=== PATIENT | male | born 1965 | race Caucasian/White ===

== ENCOUNTER 2019-07-19 09:52 | Outpatient (RCR) | payer OTHER, SELFPAY ==
--- NOTE | 2019-07-20 11:39 | HP.FCE ---
HP OT Functional Capacity Eval - Task Lift Floor (Occasional 1-33% of Day): 75# Floor (Frequent 34-66% of Day): 38# Floor (Constant 67-100% of Day): 15# Floor PDL: Medium-Heavy Knee (Occasional 1-33% of Day): 75# Knee (Frequent 34-66% of Day): 38# Knee (Constant 67-100% of Day): 15# Knee PDL: Medium-Heavy Waist (Occasional 1-33% of Day): 85# Waist (Frequent 34-66% of Day): 42# Waist (Constant 67-100% of Day): 17# Waist PDL: Medium-Heavy Shoulder (Occasional 1-33% of Day): 45# Shoulder (Frequent 34-66% of Day): 22 Shoulder (Constant 67-100% of Day): 9 Overhead (Occasional 1-33% of Day): 15# Overhead (Frequent 34-66% of Day): 7.5 Overhead (Constant 67-100% of Day): NA Overhead PDL: Sedentary-Light Comments: Pain limiting factor with pt- due to pts pain level no constant ability with lifting - Work Activity/Posture Bending: Occasional Ability (1-33% of day) Squatting: Occasional Ability (1-33% of day) Kneeling: Frequent Ability (34-66% of day) Reaching out: Frequent Ability (34-66% of day) Reaching up: Frequent Ability (34-66% of day) Sitting: Occasional Ability (1-33% of day) Comments: with shiffting body weight Walking: Occasional Ability (1-33% of day) Standing: Occasional Ability (1-33% of day) Comments: with shifting body weight - Reference Duration Sedentary Sedentary Light Light Light Medium Medium Medium Heavy Very Heavy Heavy Occasional (0-33% of day) Frequent (34-66% of day) Constant (67-100% of day) 10 # Negligible Negligible 15 # 8 # Negligible 20 # 10# Negli. 35 # 18 # 7 # 50 # 25 # 10 # 75 # 100 # >100 # 38 # 50 # >50 # 15 # 20 # >20 # - Patient Information Height: 1.85 m Weight:: 104.326 kg Hand Dominance: Right - Medical History Medical History Including Restrictions: pt states he was in good health until he started having back issues for greater than 6 years. Pt has been through Physical therapies and other conservative methods. Pt states all conservative methods failed, and his low back right side pain got worse and he opted to have sx (laminectomy L4-L5) April 09, 2019. in anticipation of feeling better. Pt states he did have physical therapy following his sx and has continued with his HEP that they gave him. Pt states his spine surgeon released pt to go back to work but pain mtg referred pt for FCE to determine pts restriction. pt reports he is icing his back every other day. Pt states now he is limiting himself with twisting/turning and lifting because he does not want to hurt his back .pt states if he is more active his symptoms increase - Diagnoses Diagnoses: Laminectomy L4-L5 sx on 04/09/19 - Symptoms Symptoms: Pain from low back, buttock, groin to heal. right leg weakness. or lack of leg coordination - Pain Pain: Pt reports sitting he is currently 6.5/10 thats with taking pain medication at 9:30 am. Pt states pain travels from back to right groin, buttock. Brendan Pain scale= 37. 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 pt states he has worked there 6 years pt states his job requirements of lift 35#, any lifting greater than 35# work policy requires employee to get help. Pt states he also is required to climb ladders two to three stories high, crawling, squatting, kneeling and walking or riding a tricycle. Pt states prior to working at 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 pt left this employment due to company closing. - Behavioral Behavioral: pt was cooperative and put good effort to requested tasks. - ADLS ADLS: Pt lives with his in a split-level home- pt has 15 steps to get to main floor of home - steps have two railings. Pt has walk in shower and states he can field marketing team leader shower for his bathing tasks at independent level. Pt reports he is independent with dressing. Pt is independent with yard care, driving and shopping for short periods of time. Pt states he is performing his HEP physical therapy has given him and walking 30 min a day. - Physical Examination Physical Examination: Well nourished male with glasses ROM: pt demo ROM WFL Strength: MMT right hip flex 3+/5. MMT right quad 3+/5 Pt demo with weak right LE strength. left LE grossly 5/5. BUE MMT 5/5 grossly throughout. Right Senior Firewall Engineer Strength Average: 124.33 Right Senior Firewall Engineer Strength Percentile: 59% Left Senior Firewall Engineer Strength Average: 118.33 Left Senior Firewall Engineer Strength Percentile: 70% Right Lateral Pinch Average: 30.00 Right Lateral Pinch Percentile: >90% Left Lateral Pinch Average: 30.66 Left Lateral Pinch Percentile: >90% Right Tripod Pinch Average: 21.33 Right Tripod Pinch Percentile: 75% Left Tripod Pinch Average: 32.00 Left Tripod Pinch Percentile: >90% Sensation: denies Fine Motor: denies issues. 9 hole-peg test. right 18.73 = 75%. left 17.35 sec.= 90%. no deficits noted with fine motor skils Balance: pt demo a loss of balance while performing bending forward. Pt able to correct himself independently. no other loss of balance was noted. - Non Material Handling Activities Bending: PT demo the ability to bend forward states with bending correction (45* flexion) pain in back up increases to 7/10. pt state it feels like something is rolling over his nerve or pinching it. Pt demo the ability to bend forward reaching the floor three times, ten times and ten times rapidly pt had loss of balance with correction at number 6 but completed 10 times. pt report pain 5/10 following. Pt can bend forward on an occasional ability. Squatting: Pt demo the ability to squat three times and ten time with external support- states pain in groin on right side 7/10 .pt unable to complete 10 times rapidly. pt can perform squatting on a occasional ability Kneeling: pt demo the abilty to kneel left leg out and right leg back- reported groin, quad and buttock pain 7/10- pt attempted with right leg out and left leg behind- needed ext support- pt kneel ten times only unable to complete ten times rapidly. pt reported pain 7/10. Reaching out/up: Pt demo the ability to reach up/out three times, ten times and ten times rapidly. pt completed standing. no increase in back pain 4/10. Pt can reach out/up on a frequent ability. Walking: Pt demo the ability to ambulate 15 min with no expressed increase in pain- pt is walking 30 min a day for part of his recocvery. Pt can ambulate on a occasional ability Standing: pt demo the ability to stand 6 min shifting body weight. pt can stand on occasional ability Sitting: Pt demo the ability to sit for 30 min and then started shifting his body weight to increase comfort pt reports pain 5/10. Pt can sit on a frequent ability. Climbing Stairs: pt demo the ability to ascend/descend ten steps with a reciprocal step patter with use of hand rails. - Dynamic Occasional Lifting Capacity Floor Lift: Pt lifted 75# maximally and 45# comfortably from floor level. Knee Lift: Pt lifted 75# maximally and 45# comfortably from knee level. Waist Lift: Pt lifted 85# maximally and 45# comfortably from waist level. Shoulder Lift: Pt lifted 45# maximally and 24# comfortably from shoulder level. Overhead Lift: Pt lifted 15# maximally from overhead level. Carrying: pt carried 35 comfortably for 35 feet. Comments: pt reports he was performing tasks this visit that he has not done in a while- pain at end of session was 8/10. pain is limiting factor with tasks.
== END 2019-07-19 19:00 | disposition home or self-care (01) ==
LOC: OT 09:52
PROVIDERS: Family Provider Family Medicine; PCP Family Medicine; Referring Provider Anesthesiology Pain Medicine; Visit Provider Anesthesiology Pain Medicine
DX: M54.9 Dorsalgia, unspecified (principal)
CPT/HCPCS: 97750

== ENCOUNTER → 2019-09-20 13:53 | Outpatient (CLI) | payer OTHER, SELFPAY ==
[2019-09-20 14:44] LABS: Amphetamine Urine VISTA NEGATIVE (<1000 ng/mL); Barbiturate Urine VISTA NEGATIVE (< 200 ng/mL); Benzodiazepine Urine VISTA NEGATIVE (< 200 ng/mL); Cocaine Urine VISTA NEGATIVE (< 300 ng/mL); Ecstacy Urine VISTA NEGATIVE (< 500 ng/mL); Methadone Urine VISTA NEGATIVE (< 300 ng/mL); PCP Urine VISTA NEGATIVE (< 25 ng/mL); THC Urine VISTA NEGATIVE (< 50 ng/mL); Vista UDS pH Range 5
== END ==
PROVIDERS: Family Provider Family Medicine; PCP Family Medicine; Referring Provider Anesthesiology Pain Medicine; Visit Provider Anesthesiology Pain Medicine
DX: F11.20 Opioid dependence, uncomplicated (principal)
CPT/HCPCS: 36415; 80307

== ENCOUNTER → 2021-03-02 14:19 | Outpatient (CLI) | payer OTHER, SELFPAY ==
[2021-02-19 10:46] VITALS: BMI 31.1
--- NOTE | 2021-03-02 14:21 | CT_ITS ---
STUDY: CT CHEST WITH CONTRAST REASON FOR EXAM: Male, 55 years old. Mediastinal Lymphadenopathy. Follow-up examination. RADIATION DOSAGE (If Supplied By Facility): CTDIvol = ( 16.4 ) mGy, DLP = ( 761.94 ) mGycm TECHNIQUE: Transaxial imaging was performed following intravenous administration of IV 100mL Isovue-300. Multiplanar coronal and sagittal images were reformatted. Individualized dose optimization techniques were used for this CT. COMPARISON: None. FINDINGS: The lungs are normal. There is no demonstrated pleural abnormality. Normal heart and pericardium. There are multiple small lymph nodes within the mediastinum, which are normal in size and morphology most compatible with reactive lymph hyperplasia. Enlarged right hilar lymph nodes. The largest lymph node measures 3.6 times by 2.4 cm. Normal enhanced pulmonary arteries. Normal aorta arch and descending thoracic aorta. Normal osseous structures. There is no demonstrated abnormality of the visualized upper abdomen. CT/Chest WITH Contrast IMPRESSION: Enlarged right hilar lymph nodes. Electronically Signed: Kye Sena MD at 15:12 EDT , Service support ,
== END ==
PROVIDERS: PCP Family Medicine; Referring Provider Internal Medicine Critical Care Medicine; Visit Provider Internal Medicine Critical Care Medicine
DX: R59.0 Localized enlarged lymph nodes (principal)
CPT/HCPCS: 71260; Q9967

== ENCOUNTER → 2021-03-12 09:32 | Outpatient (CLI) | payer OTHER, SELFPAY ==
[2021-02-19 10:46] VITALS: BMI 31.1
--- NOTE | 2021-03-12 13:19 | PFT ---
INTRODUCTION: The patient is a 55-year-old male that presents for pulmonary function studies secondary to a diagnosis of shortness of breath. Respiratory therapy reports good patient effort. Bronchodilators were used during testing. INTERPRETATION: Forced expiration spirometry demonstrates no evidence of a large airways obstructive ventilatory defect. There was no significant response to aerosolized bronchodilators. Spirograms are of good quality and plateau normally. The respiratory flow volume loop appears normal. Body plethysmography was performed and reveals lung volumes to be within normal limits. Diffusing capacity by single breath CO is also within normal limits. IMPRESSION: Grossly normal pulmonary function studies.
== END ==
PROVIDERS: PCP Family Medicine; Referring Provider Internal Medicine Critical Care Medicine; Visit Provider Internal Medicine Critical Care Medicine
DX: R06.02 Shortness of breath (principal)
CPT/HCPCS: 94060; 94726; 94729

== ENCOUNTER → 2021-03-13 10:58 | Outpatient (CLI) | payer OTHER, SELFPAY ==
[2021-02-19 10:46] VITALS: BMI 31.1
[2021-03-13 11:15] VITALS: PULSE 101; PULSE 108; PULSE 113; PULSE 117; PULSE 76; PULSE 82; PULSE 96; PULSE 98; O2SAT 96; O2SAT 97; O2SAT 98
--- NOTE | 2021-03-14 10:18 | PCM.PSN.6M ---
PSN 6 Minute Walk Test 6 Minute Walk Test 6 Minute Walk Test: 6 Minute Walk Test PSN:6-Minute Walk Test Start: 03/13/21 11:14 Freq: Status: Active Protocol: RESP.6MINW Document 03/13/21 11:15 HJ (Rec: 03/13/21 11:18 HJ [id number]) 6 Minute Walk Test Date Performed 03/13/21 Time Performed 11:15 Height 6 ft 1 in Weight: 230 lb Weight in Pounds 230.[address]: Андрей Rogers FIO2 (% Oxygen) 21 Assistive device used: None Pre-test Oxygen Delivery Method Room Air Pulse Ox (%) 98 Pulse Rate (60-100 beats/min) 76 Dyspnea Rajiv Scale (0-10) 0 Exertion Rajiv Scale (6-20) 6 1st minute Oxygen Delivery Method Room Air Pulse Ox (%) 97 Pulse Rate (60-100 beats/min) 96 2nd minute Oxygen Delivery Method Room Air Pulse Ox (%) 96 Pulse Rate (60-100 beats/min) 98 3rd minute Oxygen Delivery Method Room Air Pulse Ox (%) 97 Pulse Rate (60-100 beats/min) 108 H 4th minute Oxygen Delivery Method Room Air Pulse Ox (%) 97 Pulse Rate (60-100 beats/min) 113 H 5th minute Oxygen Delivery Method Room Air Pulse Ox (%) 97 Pulse Rate (60-100 beats/min) 101 H 6th minute Oxygen Delivery Method Room Air Pulse Ox (%) 97 Pulse Rate (60-100 beats/min) 117 H Post-test Oxygen Delivery Method Room Air Pulse Ox (%) 98 Pulse Rate (60-100 beats/min) 82 Dyspnea Rajiv Scale (0-10) 1 Exertion Rajiv Scale (6-20) 8 Full Laps Walked 24 Partial Lap, Number of Tiles Walked 0 Total Distance Walked (ft) 1416 Interpretation Interpretation: The patient ambulated 1416 feet over the course of 6 minutes beginning on room air without assistive devices. Pretesting oxygen saturation was noted to be 98% on room air. With ambulation, the mj oxygen saturation was 96%. There was no significant exertional oxygen desaturation. Recommendations Recommendations: There is no indication for the use of supplemental oxygen at this time.
== END ==
PROVIDERS: PCP Family Medicine; Referring Provider Internal Medicine Critical Care Medicine; Visit Provider Internal Medicine Critical Care Medicine
DX: R06.02 Shortness of breath (principal)
CPT/HCPCS: 94618

== ENCOUNTER → 2021-06-27 10:58 | Outpatient (CLI) | payer OTHER, SELFPAY ==
[2021-06-27 11:26] LABS: Absolute Lymphocyte Count 0.73 X10^3/uL (0.83-4.51); Absolute Neutrophil Count 3.7 X10^3/uL (2.0-7.7); Basophil# 0.03 X10^3/uL; Basophil% 0.6 % (0-1); Eosinophil# 0.07 X10^3/uL; Eosinophils% 1.4 % (0-5); Hematocrit 46.7 % (40-54); Hemoglobin 15.6 g/dL (13.0-16.5); Lymphocyte # 0.73 X10^3/ul (0.83-4.51); Lymphocyte % 14.6 % (19-41); Mean Corp Hgb Conc 33.4 g/dL (32-36); Mean Corpuscular Hgb 30.7 pg (27.0-32.0); Mean Corpuscular Volume 91.9 fL (80-94); Mean Platelet Vol. 10.1 fl (6.2-12.0); Monocyte# 0.45 X10^3/uL; NRBC Flagged by Analyzer 0 % (0-5); Neutrophil # 3.69 X10^3/uL (2.7-7.7); Platelet Count 232 K/mm3 (150-450); RBC Distribution Width CV 12.9 % (11.6-14.6); RBC Distribution Width SD 43.7 fl (35.1-43.9); Red Blood Count 5.08 M/mm3 (4.6-6.2)
[2021-06-27 11:29] LABS: Erythrocyte Sedimentation Rate 28 mm/hr (0-20)
[2021-06-28 20:08] LABS: Cytoplasmic Ab (C-ANCA) <1:20 titer (Neg:<1:20)
[2021-06-28 20:53] LABS: Angiotensin Convert Enzyme 25 U/L (14-82); Perinuclear Ab (P-ANCA) <1:20 titer (Neg:<1:20)
[2021-06-30 14:09] LABS: ANTINUCLEAR ANTIBODIES DIRECT Positive (Negative); Alternaria tenuis <0.10 kU/L (Class 0); Anti-Centromere B Ab <0.2 AI (0.0-0.9); Anti-Chromatin <0.2 AI (0.0-0.9); Anti-Jo <0.2 AI (0.0-0.9); Anti-Scleroderma-70 AB <0.2 AI (0.0-0.9); Ash, White <0.10 kU/L (Class 0); Aspergillus fumigatus <0.10 kU/L (Class 0); Bermuda Grass <0.10 kU/L (Class 0); Birch 0.22 kU/L (Class 0/I); Black Walnut <0.10 kU/L (Class 0); Cat Hair / Dander,Stand <0.10 kU/L (Class 0); Cedar, Mountain <0.10 kU/L (Class 0); Cladosporium herbarum <0.10 kU/L (Class 0); Cockroach, American <0.10 kU/L (Class 0); Cottonwood <0.10 kU/L (Class 0); D farinae Mite <0.10 kU/L (Class 0); D pteronyssinus <0.10 kU/L (Class 0); Dog Epithelia <0.10 kU/L (Class 0); Elm, American White <0.10 kU/L (Class 0); Immunoglobulin E 27 IU/mL (6-495); Maple/Box Elder <0.10 kU/L (Class 0); Mouse Urine <0.10 kU/L (Class 0); Mulberry, White <0.10 kU/L (Class 0); Oak, White <0.10 kU/L (Class 0); Pecan <0.10 kU/L (Class 0); Penicillium Notatum <0.10 kU/L (Class 0); Pigweed, Rough <0.10 kU/L (Class 0); RNP Ab <0.2 AI (0.0-0.9); Ragweed, Short/Common <0.10 kU/L (Class 0); Russian Thistle <0.10 kU/L (Class 0); SJOGREN'S Anti-SS-A test 4.6 AI (0.0-0.9); SJOGREN'S Anti-SS-B test < 0.2 AI (0.0-0.9); Sheep Sorrel <0.10 kU/L (Class 0); Smith Ab <0.2 AI (0.0-0.9); Sycamore, American <0.10 kU/L (Class 0); Timothy Grass <0.10 kU/L (Class 0)
[2021-06-30 14:50] LABS: Anti-dsDNA Ab <1 IU/mL (0-9)
== END ==
PROVIDERS: PCP Family Medicine; Referring Provider Internal Medicine Critical Care Medicine; Visit Provider Internal Medicine Critical Care Medicine
DX: R07.81 Pleurodynia (principal); R59.0 Localized enlarged lymph nodes
CPT/HCPCS: 36415; 82164; 82785; 85025; 85652; 86003; 86038; 86140; 86225; 86235; 86256

== ENCOUNTER → 2021-07-09 07:09 | Outpatient (CLI) | payer OTHER, SELFPAY ==
[2021-07-09] MEDS: Methacholine Chloride 18 ml neb kit INHALATION (07:19)
--- NOTE | 2021-07-09 14:54 | BRONCHALL ---
Bronchoprovocation Challenge Bronchoprovocation Challenge Bronchoprovocation Challenge: BRONCHOPROVOCATION STUDY INTERPRETATION Brief HPI: Patient is a 55 year old male, currently under the care of Dr. Rogers, who presents to [facility] for a bronchoprovocation study secondary to diagnosis of pleurodynia. Respiratory therapist reports good effort and reproducible results. Interpretation: Initial spirometry showed no large airways obstructive ventilatory defect. The patient was then given increasingly concentrated doses of methacholine in a stepwise/standardized fashion, using a modified ATS protocol. The patient?s maximum reduction in FEV1 was 4 percent predicted. Impression: Negative Bronchoprovocation study. This is NOT consistent with the diagnosis of asthma.
== END ==
PROVIDERS: PCP Family Medicine; Referring Provider Internal Medicine Critical Care Medicine; Visit Provider Internal Medicine Critical Care Medicine
DX: R07.81 Pleurodynia (principal)
CPT/HCPCS: 94070; 95070

== ENCOUNTER → 2021-07-10 16:25 | Outpatient (CLI) | payer OTHER, SELFPAY ==
--- NOTE | 2021-07-10 | PET_ITS ---
EXAMINATION: FDG PET-CT INDICATIONS: A 55-year-old male with reported history of mediastinal adenopathy, right thoracic perihilar mass formation pulmonary nodularity. COMPARISON EXAMINATION: CT of the chest report dated 03/02/21 INDEX LESION SIZE SUV INTERPRETATION Mediastinum, bilateral thoracic perihilum 48.2 x 14.3-mm (largest) (frame 204) 10.7 (max) Fulfills quantitative criteria for viable neoplasm, histopathologic analysis recommended TECHNIQUE: Following the intravenous administration of 12.78 mCi of F-18 deoxyglucose via the left forearm, multiplanar image acquisitions of the neck, chest, abdomen and pelvis to level of mid thigh, obtained at one hour post radiopharmaceutical administration contemporaneously interpreted with the current CT of the neck, chest, abdomen and pelvis, to level of mid thigh, dated 07/10/[address] of the chest report dated 03/02/21 reveals: BLOOD GLUCOSE LEVEL:?? 96 mg/dl?HEIGHT:?73 inches?WEIGHT: 230 lbs. FINDINGS: 1. Multifocal increased radiopharmaceutical distribution extends from the superior-subcarinal mediastinum and bilateral thoracic perihilum generating a calculated maximal standard uptake value of 10.7. The maximal axial diameter of the largest individual metabolic, morphologic abnormality on review of CT of the chest dated 07/10/21 is 48.2-mm (transverse) x 14.3-mm (AP). 2. Normal physiologic distribution of the radiopharmaceutical is apparent in the hepatic (2.8) and splenic parenchyma, both renal units, bladder and visualized intestinal tract. The visualized portion of the cerebral cortical-subcortical structures demonstrate symmetric and preserved glucose metabolism. Diffuse radiopharmaceutical concentration is noted in all four quadrants of the abdomen and pelvis. Pertinent CT findings are as follows: CHEST: Bilateral subcentimeter axillary soft tissue densities with fatty hilus are non-glucose avid. Mediastinal and thoracic perihilar soft tissue demonstrates quantitatively significant increased FDG uptake previously described. There are no parenchymal densities-nodules defined in the right and left hemithorax with discernible increased FDG uptake. ABDOMEN AND PELVIS: The gallbladder is surgically absent. Pelvic arterial calcification is defined. A small fat containing left inguinal hernia is observed. Right and left inguinal soft tissue densities with fatty hilus are ametabolic. Calcification is manifest in the left lower hemipelvis. Calcification is observed in the left kidney. SKELETAL: Degenerative changes are noted in the cervical, thoracic and lumbar spine without evidence of increased radiopharmaceutical concentration. PET/PET/CT Tumor Base -Thigh Init IMPRESSION: 1. The increase in FDG concentration multifocally apparent in the superior-subcarinal mediastinum, bilateral thoracic perihilum fulfills quantitative criteria for viable neoplasm with single point technique. Histopathologic analysis is recommended if clinically appropriate. 2. No other quantitatively significant hypermetabolic abnormalities are noted. Electronic Signature Rolando Chaves D.O. Electronically Signed: Rolando Chaves DO at 17:35 EDT Tel , Service support ,
== END ==
PROVIDERS: PCP Family Medicine; Referring Provider Internal Medicine Critical Care Medicine; Visit Provider Internal Medicine Critical Care Medicine
DX: R59.0 Localized enlarged lymph nodes (principal); R91.8 Other nonspecific abnormal finding of lung field
CPT/HCPCS: 78815; A9552

== ENCOUNTER → 2021-07-19 09:29 | Outpatient (CLI) | payer OTHER, SELFPAY ==
[2021-07-19 10:21] LABS: International Normalized Ratio 1.1; Prothrombin Time (Protime)PT. 13.1 SECONDS (11.7-14.9)
[2021-07-19 10:42] LABS: Rheumatoid Factor < 10.0 IU/mL (<15)
== END ==
PROVIDERS: PCP Family Medicine; Referring Provider Nurse Practitioner Acute Care; Visit Provider Nurse Practitioner Acute Care
DX: R07.81 Pleurodynia (principal); R06.02 Shortness of breath
CPT/HCPCS: 36415; 85610; 85730; 86431

== ENCOUNTER 2021-07-27 12:07 | Day surgery (SDC) | payer OTHER, SELFPAY ==
--- NOTE | 2021-07-24 06:48 | PCM.HP.STD ---
HPI - General HPI Narrative The patient is a 55-year-old male who initially presented to the pulmonary medicine office in January 2021 for the evaluation of mediastinal adenopathy. CTA chest dated October 2020 revealed the presence of right hilar adenopathy measuring 2.3 cm along with subcarinal adenopathy measuring 1.[address] completed in February 2021 again demonstrated similar findings. Pulmonary function studies in February 2021 were grossly within normal limits. Given the undifferentiated nature of his adenopathy, a PET scan was completed in June 2021 which revealed increased FDG concentration in the subcarinal mediastinum along with bilateral thoracic perihilum which fulfilled quantitative criteria for viable neoplasm. Therefore, the patient was referred to undergo mediastinal lymph node sampling via EBUS. [facility] Medical History (Updated 07/19/21 @ 09:31 by Danielle Morel PROCESS CONTROL BOARD OPERATOR, PROCESS CONTROL BOARD OPERATOR-C) Back pain Cough Left-sided chest pain Lumbar stenosis Pain in toe SOB (shortness of breath) Home Medications ibuprofen 200 mg capsule 200 mg PO ONCE 10/08/17 [History Last Taken Unknown] multivitamin 1 tab PO QAM 10/08/17 [History Last Taken Unknown] Lactobacillus reuteri 100 million cell chewable tablet cell PO 02/19/21 [History Last Taken Unknown] acetaminophen 500 mg tablet 1,000 mg PO Q6H PRN tablet 02/19/21 [History Last Taken Unknown] cholecalciferol (vitamin D3) 50 mcg (2,000 unit) capsule 50 mcg PO DAILY 02/19/21 [History Last Taken Unknown] montelukast 10 mg tablet 10 mg PO QPM #30 tab 04/04/21 [Rx Last Taken Unknown] Allergy/AdvReac Type Severity Reaction Status Date / Time Sulfa (Sulfonamide Allergy Rash Verified 07/19/21 08:56 Antibiotics) Surgical History (Reviewed 07/19/21 @ 09:01 by Danielle Morel PROCESS CONTROL BOARD OPERATOR, PROCESS CONTROL BOARD OPERATOR-C) History of cholecystectomy History of hernia repair History of laminectomy Social History Smoking Status: Former smoker quit date: 10/27/95 pack-years: 4 ROS Constitutional Constitutional: Denies chills, fatigue or fever(s) Eyes Eyes: Denies blurry vision or change in vision ENT HEENT: Denies abnormal hearing, dysphagia, sinus pressure or sore throat Cardiovascular Cardiovascular: Denies chest pain or edema Respiratory/Chest Respiratory/Chest: Reports cough and shortness of breath with exertion; Denies hemoptysis Gastrointestinal Gastrointestinal: Denies abdominal pain or diarrhea Genitourinary Genitourinary: Denies dysuria or hematuria Musculoskeletal Musculoskeletal: Denies back pain or neck pain Integumentary Integumentary: Denies dry skin, jaundice or lesions Neurologic Neurologic: Denies abnormal gait, abnormal speech or confusion Psychiatric Psychiatric: Denies anxiety or depression Endocrine Endocrinology: Denies change in body appearance Hematologic/Lymphatic Hematologic/Lymphatic: Denies easy bleeding or easy bruising Physical Exam Const alert and oriented x3 General Appearance: cooperative HEENT normocephalic and head/scalp atraumatic Eyes PERRL and EOMs intact bilaterally Neck supple and no JVD General: trachea midline Resp normal respiratory effort Auscultation: Negative for rales, rhonchi or wheezes Cardio regular rate and regular rhythm GI normal to inspection, nondistended, normoactive bowel sounds Extremity no clubbing, cyanosis or edema Skin General Skin Exam: turgor normal Rashes: no rashes Neuro no focal motor deficits Psych affect normal Appearance: appropriate Assessment & Plan Assessment/Plan (1) Mediastinal lymphadenopathy: PLAN: 1. Mediastinal lymphadenopathy The patient had a chest CT from February 2021 which demonstrated right hilar and subcarinal adenopathy, the exact etiology of which is unclear. Lymphoma or an alternative inflammatory condition like sarcoidosis would be a consideration. The patient subsequently completed a PET scan in June 2021 which revealed positive uptake in the subcarinal and bilateral perihilar regions. Therefore, the patient was referred to undergo mediastinal lymph node sampling via EBUS. Risks and benefits of the proposed procedure have been reviewed with the patient. He is in agreement to proceed.
[2021-07-27] VITALS (10 sets, daily range): BP systolic 99–149; BP diastolic 59–89; PULSE 59–75; RESP 14–18; TEMP 36.4–36.6; O2SAT 95–98; BMI 30.1
--- NOTE | 2021-07-27 | ASPIG_PTH ---
PATIENT: SHERIF PERAZA LOC: EN U#:[id number] AGE/SX: 55/M ROOM: RE07/27/[address]: Dr. Андрей Rogers DO : 1965 BED: DIS: 07/27/2021 SPEC #: [id number] RECD: 07/27/21 14:33 STATUS: DAYAN REPage #: [id number] TEO: 07/27/21 00:[address]: Андрей Rogers DEPT: CYTOLOGY RECD BY: Dieudonne Marshall ENTERED: 07/27/21 14:35 SP TYPE: ASP OUT OTHR DR: Dr. Watson Marshall MD Tissues: A - Lung, NOS B - Lung, NOS C - Lung, NOS D - Lung, NOS E - Lung, NOS F - Lung, NOS G - Lung, NOS H - Lung, NOS Procedures: FNA Specimen Adequacy Special Stain Group II Special Stain Group I Surgery Specimen Level IV AFB Stain (control) GMS Stain (control) Cytology Other HEADER OPERATION: EBUS with TBNA PRE-OP DIAGNOSIS: Mediastinal LAD TISSUE SUBMITTED: A - EBUS, TBNA, site 7 #1, B - EBUS, TBNA, site 7 #2, C - EBUS, TBNA, site 7 #3, D - EBUS, TBNA, site 10R #4, E - EBUS, TBNA, site 10R #5, F - EBUS, TBNA, site 10R #6, G??EBUS, TBNA, site 7, H - EBUS, TBNA, site 10R DIAGNOSIS CYTOLOGY A. EBUS, TBNA, site 7 #1 (smears): Adequate for evaluation. Numerous lymphocytes are noted. A few epithelioid cells suspicious for granulomas are noted. Negative for malignant cells. B. EBUS, TBNA, site 7 #2 (smears): Adequate for evaluation. Numerous lymphocytes are noted. A few epithelioid cells suspicious for granulomas are noted. Negative for malignant cells. C. EBUS, TBNA, site 7 #3 (smears): Predominantly blood. Negative for malignant cells. A few lymphocytes and respiratory cells noted. D. EBUS, TBNA, site 10R #4 (smears): Predominantly blood. Negative for malignant cells. A few lymphocytes and respiratory cells noted. E. EBUS, TBNA, site 10R #5 (smears): Predominantly blood. A few respiratory epithelial cells. Negative for malignant cells. F. EBUS, TBNA, site 10R #6 (smears): Numerous lymphocytes. Negative for malignant cells and granulomas. G. EBUS, TBNA, site 7 fluid (cytospin and cell block): Numerous non-necrotizing granulomas noted. Negative for malignancy. See comment. H. EBUS, TBNA, site 10R fluid (cytospin and cell block): Negative for malignant cells. See comment. SJ:bess 07/30/2021 COMMENT The specimen is evaluated at the time of procedure by Dr. Ibarra. Rapid Onsite Evaluation: A. EBUS, TBNA, site 7 #1: Adequate for evaluation. Numerous lymphocytes are noted. A few epithelial cells suspicious for granulomas are noted. Negative for malignant cells. B. EBUS, TBNA, site 7 #2: Adequate for evaluation. Numerous lymphocytes are noted. A few epithelial cells suspicious for granulomas are noted. Negative for malignant cells. C. EBUS, TBNA, site 7 #3: Predominantly blood. Negative for malignant cells. A few lymphocytes and respiratory cells noted. D. EBUS, TBNA, site 10R #4: Predominantly blood. Negative for malignant cells. A few lymphocytes and respiratory cells noted. E. EBUS, TBNA, site 10R #5: Predominantly blood. A few respiratory epithelial cells. Negative for malignant cells. F. EBUS, TBNA, site 10R #6: Numerous lymphocytes. Negative for malignant cells and granulomas. G. Special stains for acid fast bacilli and fungi are negative for organisms; matched controls are appropriate. Flow cytometry study from [facility] shows no evidence of non-Hodgkin lymphoma. Elevated CD4/CD8 ratio. The complete report is viewable in patient?s EMR. H. The specimen is paucicellular. Granulomas are not seen. Correlation with clinical, radiologic findings and appropriate follow up are necessary. In the appropriate clinical setting, the findings may represent sarcoidosis. Case has been reviewed in consultation with Dr. Hernandez who concurs with the above diagnosis. IDC:AM CYTOLOGY STUDY Slides are reviewed. CYTOLOGY GROSS A - Received labeled with the patient's name and and designated EBUS, TBNA, site 7 #1. The specimen consists of two stained smears for GERMAINE (Rapid Onsite Evaluation). B - Received labeled with the patient's name and and designated EBUS, TBNA, site 7 #2. The specimen consists of two stained smears for GERMAINE. C - Received labeled with the patient's name and and designated EBUS, TBNA, site 7 #3. The specimen consists of two stained smears for GERMAINE. D - Received labeled with the patient's name and and designated EBUS, TBNA, site 10R #4. The specimen consists of two stained smears for GERMAINE. E - Received labeled with the patient's name and and designated EBUS, TBNA, site 10R #5. The specimen consists of two stained smears for GERMAINE. F - Received labeled with the patient's name and and designated EBUS, TBNA, site 10R #6. The specimen consists of two stained smears for GERMAINE. G - Received in RPMI is 20 ml of pink, needle rinsed fluid labeled with the patient's name and and designated EBUS, TBNA, site 7. Half of the specimen is submitted for flow cytometry studies and the rest of the specimen is submitted for cytology including cell block preparation. H - Received in RPMI is 20 ml of pink, needle rinsed fluid labeled with the patient's name and and designated EBUS, TBNA, site 10R. The specimen is submitted for cytology including cell block preparation. / SJ:rg 07/27/2021 TC:5 CPT: 03328 x2, 81907 x4, 05346 x2, 53336 x2, 25764 x2, 26326 x2
[2021-07-27] MEDS: Lactated Ringers 1,000 ML 100 ML IV ×2 (12:10→13:45)
[2021-07-27] MEDS: Lidocaine 2% (5ml sdv) 5 ML VIAL.MPF (12:45)
[2021-07-27] MEDS: Lidocaine 2% Jelly 1 APPLIC Tube (13:40)
--- NOTE | 2021-07-27 14:20 | OP.BRONCH_ITS ---
Patient Name: Richard Billingsley Procedure Date: 07/27/2021 1:16 PM Date of : 1965 Age: 55 Procedure: Bronchoscopy Indications: Mediastinal adenopathy Providers: Андрей Rogers MD Referring MD: Watson Marshall Medicines: General Anesthesia Complications: No immediate complications Procedure: Pre-Anesthesia Assessment: - A History and Physical has been performed. Patient meds and allergies have been reviewed. The risks and benefits of the procedure and the sedation options and risks were discussed with the patient. All questions were answered and informed consent was obtained. Patient identification and proposed procedure were verified prior to the procedure by the physician and the nurse in the procedure room. Mental Status Examination: alert and oriented. Airway Examination: normal oropharyngeal airway. Respiratory Examination: clear to auscultation. CV Examination: normal. ASA Grade Assessment: II - A patient with mild systemic disease. After reviewing the risks and benefits, the patient was deemed in satisfactory condition to undergo the procedure. The anesthesia plan was to use general anesthesia. Immediately prior to administration of medications, the patient was re-assessed for adequacy to receive sedatives. The heart rate, respiratory rate, oxygen saturations, blood pressure, adequacy of pulmonary ventilation, and response to care were monitored throughout the procedure. The physical status of the patient was re-assessed after the procedure. After I obtained informed consent, the scope was passed under direct vision. Throughout the procedure, the patient's blood pressure, pulse, and oxygen saturations were monitored continuously. The ultrasound bronchoscope was introduced through the mouth, via laryngeal mask airway and advanced to the tracheobronchial tree. The procedure was accomplished without difficulty. The patient tolerated the procedure well. Findings: The laryngeal mask airway is in good position. The vocal cords appear normal. The subglottic space is normal. The trachea is of normal caliber. The khanh is sharp. The tracheobronchial tree was examined to at least the first subsegmental level. Bronchial mucosa and anatomy are normal; there are no endobronchial lesions, and no secretions. The scope was withdrawn and replaced with the EBUS bronchoscope to accomplish the ultrasound examination. Lymph Nodes: An endobronchial ultrasound endoscope was utilized to systematically examine the subcarinal mediastinum (level 7) and right hilar region (level 10R) in order to assist with guiding the biopsy needle. Lymph node sizing was performed via endobronchial ultrasound. Sampling by transbronchial needle aspiration was also performed using an Olympus EBUS-TBNA 19 gauge needle in the subcarinal mediastinum (level 7) and right hilar region (level 10R) and sent for routine cytology and flow cytometry. - The 7 (subcarinal) node was evaluated. Three samples with the needle were obtained. - The 10R (hilar) node was evaluated. Three samples with the needle were obtained. Lymph Nodes: A PET scan was found to be hypermetabolic in the subcarinal mediastinum (level 7) and right hilar region (level 10R) nodes. Impression: - Mediastinal adenopathy - The airway examination was normal. - Endobronchial ultrasound was performed. - Lymph node sizing and sampling was performed. Recommendation: - Await cytology results. Procedure Code(s): --- Professional --- 16902, Bronchoscopy, rigid or flexible, including fluoroscopic guidance, when performed; with endobronchial ultrasound (EBUS) guided transtracheal and/or transbronchial sampling (eg, aspiration[s]/biopsy[ies]), one or two mediastinal and/or hilar lymph node stations or structures Diagnosis Code(s): --- Professional --- R59.0, Localized enlarged lymph nodes R09.89, Other specified symptoms and signs involving the circulatory and respiratory systems CPT copyright 2017 [employer]. All rights reserved. The codes documented in this report are preliminary and upon contact lens lathe operator review may be revised to meet current compliance requirements. DO Андрей Carlton MD 07/27/2021 2:20:19 PM This report has been signed electronically. Number of Addenda: 0 Note Initiated On: 07/27/2021 1:16 PM
== END 2021-07-27 16:19 | disposition home or self-care (01) ==
LOC: EN 12:08 → AC 12:08
PROVIDERS: PCP Family Medicine; Referring Provider Family Medicine; Visit Provider Internal Medicine Critical Care Medicine
PROC: 0BJ08ZZ Inspection of Tracheobronchial Tree, Via Natural or Artificial Opening Endoscopic (ICD-10-PCS; CPT 31622; principal; 2021-07-27 12:45)
DX: R59.0 Localized enlarged lymph nodes (principal); J45.909 Unspecified asthma, uncomplicated; Z20.822 Contact with and (suspected) exposure to COVID-19; E66.9 Obesity, unspecified; Z68.30 Body mass index [BMI] 30.0-30.9, adult; Z79.1 Long term (current) use of non-steroidal anti-inflammatories (NSAID); Z79.899 Other long term (current) drug therapy; Z87.891 Personal history of nicotine dependence
CPT/HCPCS: 31652; 87426; 88161; 88172; 88305; 88312; 88313; J7120; J2405

== ENCOUNTER → 2021-09-17 09:34 | Outpatient (CLI) | payer OTHER, SELFPAY ==
[2021-09-17 10:46] LABS: PSA,Total- Diagnostic 0.62 ng/mL (0.0-4.0)
== END ==
PROVIDERS: PCP Family Medicine; Referring Provider Urology; Visit Provider Urology
DX: Z12.5 Encounter for screening for malignant neoplasm of prostate (principal)
CPT/HCPCS: 36415; 84153

== ENCOUNTER → 2021-10-15 13:23 | Outpatient (CLI) | payer OTHER, SELFPAY ==
--- NOTE | 2021-10-15 13:25 | RAD_ITS ---
STUDY: X-RAY - ABDOMEN/PELVIS REASON FOR EXAM: Male, 55 years old. KIDNEY STONE TECHNIQUE: Single AP view of the abdomen / pelvis. COMPARISON: None. FINDINGS: There is an unremarkable bowel gas pattern. There is a 3.2 mm rounded calcification overlying the transverse process of the L4 vertebrae on the right side suggestive of a mid right ureteral calculus. There are calcified phleboliths in the pelvis. Normal visualized osseous structures. RAD/Abdomen Single View IMPRESSION: 3.2 mm rounded calcification overlying the transverse processes of the L4 vertebrae on the right side. This may represent a mid right ureteral calculus. Electronically Signed: Kye Sena MD at 13:53 EST , Service support ,
== END ==
PROVIDERS: PCP Family Medicine; Referring Provider Urology; Visit Provider Urology
DX: N20.1 Calculus of ureter (principal)
CPT/HCPCS: 74018

== ENCOUNTER 2021-10-23 11:38 | Day surgery (SDC) | payer OTHER, SELFPAY ==
--- NOTE | 2021-10-23 06:22 | RAD_ITS ---
STUDY: X-RAY - ABDOMEN/PELVIS REASON FOR EXAM: Male, 55 years old. pre op TECHNIQUE: Single AP view of the abdomen / pelvis. COMPARISON: 10/15/2021 FINDINGS: Status post cholecystectomy. Gas in multiple loops of small bowel in a nonspecific bowel gas pattern. The visualized liver, spleen and kidneys are grossly normal in size and morphology. Normal soft tissue structures. Normal visualized osseous structures. RAD/Abdomen Single View IMPRESSION: Nonspecific bowel gas pattern. Electronically Signed: Rolando Block MD at 11:58 EST Tel , Service support ,
[2021-10-23 12:10] VITALS: BP 149/93; PULSE 63; RESP 16; TEMP 36.5; O2SAT 98; BMI 31.1
[2021-10-23] MEDS: Lactated Ringers 1,000 ML 15 ML IV (12:25)
--- NOTE | 2021-10-23 14:54 | PCM.HP.STD ---
HPI - General HPI Narrative SHERIF PERAZA, is a 55 M who presents for treatment of a right ureteral calculi PFSH Medical History (Updated 10/23/21 @ 14:[address] Steve Bang MD) Back pain Chest pain Cough Former smoker History of renal disease Left-sided chest pain Lumbar stenosis Pain in toe SOB (shortness of breath) Wears glasses Home Medications ibuprofen 200 mg capsule 200 mg PO PRN PRN 10/08/17 [History Last Taken Unknown] multivitamin 1 tab PO QAM 10/08/17 [History Last Taken Unknown] Lactobacillus reuteri 100 million cell chewable tablet 1 cell PO DAILY 02/19/21 [History Last Taken Unknown] acetaminophen 500 mg tablet 1,000 mg PO Q6H PRN tablet 02/19/21 [History Last Taken Unknown] cholecalciferol (vitamin D3) 50 mcg (2,000 unit) capsule 50 mcg PO DAILY 02/19/21 [History Last Taken Unknown] zinc 50 mg PO DAILY 07/26/21 [History Last Taken Unknown] oxycodone-acetaminophen [Percocet] 1 tab PO Q4H PRN 10/18/21 [History Last Taken Unknown] tamsulosin 0.4 mg PO DAILY 10/18/21 [History Last Taken Unknown] oxycodone-acetaminophen 1 tab PO Q6H PRN 7 Days #10 tab 10/23/21 [Rx Last Taken Unknown] Allergy/AdvReac Type Severity Reaction Status Date / Time Sulfa (Sulfonamide Allergy Rash Verified 10/23/21 12:10 Antibiotics) Surgical History History of cholecystectomy History of hernia repair History of laminectomy Social History Smoking Status: Former smoker quit date: 10/27/95 pack-years: 4 Vital Signs Vital Signs Vital Signs: 10/23/21 12:10 Temperature 97.7 F L Temperature Source Temporal Pulse Rate 63 Respiratory Rate 16 Respiratory Pattern Normal Blood Pressure 149/93 H Blood Pressure Mean 111 Blood Pressure Source Monitor Blood Pressure Position Sitting Blood Pressure Location Right Arm Pulse Ox 98 Oxygen Delivery Method Room Air Weight Weight: 107 kg Body Mass Index (BMI) 31.1 Results Lab / Micro Data Micro: Microbiology 10/22/21 14:23 Nasal Secretion SARS-CoV-2 Antigen (Rapid) - Final Radiology Impression KUB X-Ray 10/23/21 06:22 IMPRESSION: Nonspecific bowel gas pattern. Electronically Signed: Rolando Block MD at 11:58 EST Tel , Service support ,
--- NOTE | 2021-10-23 14:54 | PCM.DC ---
Discharge Instructions Diet Discharge Diet: No restrictions Activity Discharge Activity: Return to Normal Activity and May Not Drive (while taking narcotic pain medications.) Dressing / Incision Call your doctor if you observe: Fever of 101 or Higher Follow Up Care Please Follow Up With: Steve Bang MD When: Call [phone] for an appointment Test Results: Test results from this visit will be discussed in further detail at your follow-up appointment, if applicable. Discharge Plan Admission Primary Reason for Your Visit: Right ESWL Attending Provider: Steve Bang Primary Care Provider: Watson Marshall Discharge Orders/Prescriptions Prescriptions: New oxycodone-acetaminophen 5-325 mg tablet 1 tab PO Q6H PRN (Reason: pain) 7 Days Qty: 10 RF: 0 Continued multivitamin tablet 1 tab PO QAM RF: 0 ibuprofen 200 mg capsule 200 mg PO PRN PRN (Reason: Pain) RF: 0 acetaminophen [Tylenol Extra Strength] 500 mg tablet 1,000 mg PO Q6H PRN (Reason: Pain) RF: 0 cholecalciferol (vitamin D3) 50 mcg (2,000 unit) capsule 50 mcg PO DAILY RF: 0 Pedia-Lax Probiotic Yums 100 million cell tablet,chewable 1 cell PO DAILY RF: 0 zinc 50 mg Capsule 50 mg PO DAILY RF: 0 oxycodone-acetaminophen [Percocet] 5-325 mg Tablet 1 tab PO Q4H PRN (Reason: Pain) RF: 0 tamsulosin 0.4 mg Capsule 0.4 mg PO DAILY RF: 0 Other Ambulatory Orders: Abdomen Single View (Routine) Timeframe: 20211023 Facility: [facility] - Location: [facility] Ordered By: Dr. Steve Bang Referrals / Follow Up: Steve Bang MD [STAFF PHYSICIAN] - Watson Masrhall MD [Primary Care Provider] - Disposition Disposition (needs filled in before D/C Order can be placed): Home, Self Care
--- NOTE | 2021-10-23 14:55 | PCM.OPRPT ---
Report of Operation Date of Procedure: 10/23/21 Pre-Operative Diagnosis: Right ureteral calculi Post-Operative Diagnosis: Same Surgery/Procedure Performed:: Cystoscopy, right retrograde pyelogram, manipulation of stone, and right extracorporeal shockwave lithotripsy no stent Description of Surgical Findings:: Patient was taken back to the operating room plan is to treat the stone in the mid right ureter the stone had moved down over the renal pelvis and was difficult to see on x-ray and was not in a position to be treated with shockwave lithotripsy so plan was to push the stone back up into the mid ureter and then blast the stone hopefully not have to put a stent in. Patient was taken back to the operating room after smooth induction of general anesthesia he was placed in dorsolithotomy position. First we used fluoroscopy to look for the stone in the distal ureter we could not see it there we thought we saw the stone over the bony pelvis of the renal pelvis, we then prepped and draped the patient's penis and testicles usual sterile fashion, went into the bladder with a 21 Kosovan rigid cystourethroscope using a 5 Kosovan open-ended catheter and a Glidewire I cannulated the right ureteral orifice I then could see the stone in the ureter with and pushed manipulatedthe stone up into the mid ureter was then above the pubic bone and therefore was visible clearly on fluoroscopy next to the ureteral catheter, we injected some contrast to produce a retrograde pyelogram and we could see the stone then on the retrograde pyelogram and see the stone next to the ureteral catheter we then lined up the shockwave machine and delivered 4000 shockwaves to the stone at a rate of 90 to a rate of 120 shocks per minute and at the end of the treatment cycle the stone looked like it broken up the little tiny pieces. Then at the end of the procedure then see any major fragments left pulled out the ureteral catheter to allow the passage of stones on his own had broken up with shockwave lithotripsy no stent was placed patient bladder is was drained and the cystoscope was removed. Plan to see him back in a few weeks with an x-ray for follow-up. Surgeon: kings Type of Anesthesia: General Drains: none Admit VTE Documentation VTE Present on Admission: No VTE Mechan Device Prophylaxis: SCD's VTE Pharm Prophylaxis ordered?: No
[2021-10-23 15:08] VITALS: BP 141/79; BP 149/93; PULSE 75; RESP 18; TEMP 36.6; O2SAT 100
[2021-10-23 15:16] VITALS: BP 147/94; BP 149/93; PULSE 70; RESP 18; O2SAT 95
[2021-10-23] MEDS: Ketorolac 30 MG/ML Syringe IV (15:22)
[2021-10-23 15:30] VITALS: BP 138/88; BP 149/93; PULSE 58; RESP 18; TEMP 35.7; O2SAT 94
[2021-10-23 16:12] VITALS: BP 137/96; BP 149/93; PULSE 52; RESP 16; TEMP 35.8; O2SAT 100
== END 2021-10-23 16:25 | disposition home or self-care (01) ==
LOC: SDC 11:40 → AC 11:43
PROVIDERS: PCP Family Medicine; Referring Provider Urology; Visit Provider Urology
PROC: (CPT 50590; principal; 2021-10-23 13:30)
DX: N20.1 Calculus of ureter (principal); Z20.822 Contact with and (suspected) exposure to COVID-19; D86.9 Sarcoidosis, unspecified; J45.909 Unspecified asthma, uncomplicated; E66.9 Obesity, unspecified; Z79.899 Other long term (current) drug therapy; Z87.891 Personal history of nicotine dependence
CPT/HCPCS: 50590; 52330; 74018; 87426; C9803; J7120; J2405

== ENCOUNTER 2021-11-26 08:59 | Outpatient (CLI) | payer OTHER, SELFPAY ==
--- NOTE | 2021-11-26 09:05 | RAD_ITS ---
STUDY: X-RAY - ABDOMEN/PELVIS REASON FOR EXAM: Male, 55 years old. POSTOP -- ASSESS FOR KIDNEY STONE TECHNIQUE: Frontal views COMPARISON: 10/23/2021. FINDINGS: Normal visualized lung bases. There is an unremarkable bowel gas pattern. There is no demonstrated free abdominal air. Interval clips in the right upper quadrant. Stable pelvic calcifications likely phleboliths. No calcifications over the renal shadows. Normal soft tissue structures. Normal visualized osseous structures. RAD/Abdomen Single View IMPRESSION: Normal x-ray examination of the abdomen and pelvis. Electronically Signed: Laiht Sanchez DO at 16:51 EST ,
== END 2021-11-26 23:59 | disposition home or self-care (01) ==
LOC: RAD 09:01
PROVIDERS: PCP Family Medicine; Referring Provider Urology; Visit Provider Urology
DX: Z01.810 Encounter for preprocedural cardiovascular examination (principal)
CPT/HCPCS: 74018